=== PATIENT | male | born 1965 | race Caucasian/White ===

== ENCOUNTER 2017-02-04 07:14 | Day surgery (SDC) | payer OTHER ==
[2017-02-04] MEDS ORDERED: ALCAINE or OPHTHETIC 1 DOSE AFFEYE ONE (07:20)
[2017-02-04] MEDS ORDERED: MYDRIACIL OPHTH 1 DOSE AFFEYE ONE ×3 (07:20→07:22)
[2017-02-04] MEDS ORDERED: AK-DILATE 2.5% OPHTH 1 DOSE OP ONE ×3 (07:23→07:25)
[2017-02-04] MEDS ORDERED: TETRACAINE 0.5% OPHTH 1 DOSE AFFEYE ONE (07:52)
[2017-02-04 08:47] VITALS: BP 191/96
== END 2017-02-04 08:08 | disposition home or self-care (01) ==
LOC: SURG1 07:14
PROVIDERS: ATTEND Ophthalmology
PROC: 08QF3ZZ Repair Left Retina, Percutaneous Approach (ICD-10-PCS; principal; 2017-02-04 07:30)
DX: E11.3511 Type 2 diabetes mellitus with proliferative diabetic retinopathy with macular edema, right eye (principal)
CPT/HCPCS: 67210

== ENCOUNTER 2017-04-01 07:11 | Day surgery (SDC) | payer OTHER ==
[2017-04-01] MEDS ORDERED: ALCAINE or OPHTHETIC 1 DOSE AFFEYE ONE (07:25)
[2017-04-01] MEDS ORDERED: MYDRIACIL OPHTH 1 DOSE AFFEYE ONE ×3 (07:26→07:29)
[2017-04-01] MEDS ORDERED: AK-DILATE 2.5% OPHTH 1 DOSE OP ONE ×3 (07:27→07:29)
[2017-04-01] MEDS ORDERED: TETRACAINE 0.5% OPHTH 1 DOSE AFFEYE ONE (08:45)
[2017-04-01 12:11] VITALS: BP 190/94
== END 2017-04-01 09:05 | disposition home or self-care (01) ==
LOC: SURG1 07:11
PROVIDERS: ATTEND Ophthalmology
PROC: 08QF3ZZ Repair Left Retina, Percutaneous Approach (ICD-10-PCS; principal; 2017-04-01 08:30)
DX: E11.3512 Type 2 diabetes mellitus with proliferative diabetic retinopathy with macular edema, left eye (principal)
CPT/HCPCS: 67210